=== PATIENT | female | born 2005 | race Caucasian/White ===

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

== ENCOUNTER 2023-02-28 18:25 | Inpatient (IN) | payer MEDICAID ==
[~2023-02-28] VITALS: Ht 162.6 cm; Wt 56.0 kg
[2023-02-28] MEDS ORDERED: normal saline 1000ML IV soln IVB ONE ×3 (20:30→22:55)
[2023-02-28] MEDS ORDERED: ondansetron/PF 4mg/2ml inj IV ONE (20:30)
[2023-02-28 21:31] LABS: BASOPHILS # (AUTO) 0.2 X10'3 (0-0.2); BASOPHILS % (AUTO) 1.3 % (0-1); EOSINOPHILS % (AUTO) 0.3 % (0-6); HEMATOCRIT 42.4 % (35.0-45.0); HEMOGLOBIN 14.1 g/dl (12.0-16.0); LYMPHOCYTES # (AUTO) 0.7 X10'3 (1.1-4.8); LYMPHOCYTES % (AUTO) 5.6 % (21-51); MEAN CORPUSCULAR HEMOGLOBIN 28.3 PG (27.0-31.0); MEAN CORPUSCULAR HGB CONC 33.1 g/dL (33.0-36.5); MEAN CORPUSCULAR VOLUME 85.4 FL (78-98); MEAN PLATELET VOLUME 7.7 FL (7.4-10.4); MONOCYTES # (AUTO) 0.7 X10'3 (0-0.9); MONOCYTES % (AUTO) 5.3 % (2-12); NEUTROPHILS # (AUTO) 11.3 X10'3 (1.8-7.7); NEUTROPHILS % (AUTO) 87.5 % (42-75); PLATELET COUNT 217 X10'3 (140-440); RED BLOOD COUNT 4.97 X10'6 (4.20-5.60); RED CELL DISTRIBUTION WIDTH 14.8 % (11.5-14.5); WHITE BLOOD COUNT 12.9 X10'3 (4.5-11.0)
[2023-02-28 21:54] LABS: ALANINE AMINOTRANSFERASE 17 U/L (12-78); ALBUMIN 4.4 G/DL (3.4-5.0); ALBUMIN/GLOBULIN RATIO 1.2 (1.1-1.5); ALKALINE PHOSPHATASE 68 IU/L (20-180); ANION GAP 10 (8-16); ASPARTATE AMINO TRANSFERASE 13 U/L (10-37); BILIRUBIN,TOTAL 0.5 MG/DL (0.1-1.0); BLOOD UREA NITROGEN 16 MG/DL (7-18); BUN/CREATININE RATIO 16.3 (10.0-20.0); CALCIUM 9.2 MG/DL (8.5-10.1); CHLORIDE 102 MMOL/L (99-107); CREATININE 0.98 MG/DL (0.40-0.90); GLUCOSE 99 MG/DL (70-104); POTASSIUM 3.7 MMOL/L (3.5-5.1); SODIUM 138 MMOL/L (135-145); TOTAL CARBON DIOXIDE 26.2 MMOL/L (24-32); eGFR 73 ML/MIN
[2023-02-28 22:02] LABS: URINE HCG NEGATIVE (NEG)
[2023-02-28 22:16] LABS: CLARITY,URINE SLIGHTLY CLOUDY (Clear); COLOR,URINE YELLOW (Yellow); GLUCOSE, URINE NEGATIVE (Neg); KETONES,URINE TRACE mg/dl (Neg); LEUKOCYTE ESTERASE ,URINE SMALL (Neg); NITRITES, URINE NEGATIVE (Neg); OCCULT BLOOD,URINE NEGATIVE (Neg); PH,URINE 6.5 (4.8-8.0); PROTEIN,URINE NEGATIVE (Neg); UROBILINOGEN,URINE 0.2 E.U/dL (0.2-1.0)
[2023-02-28 22:18] LABS: URINE AMPHETAMINE SCREEN NEGATIVE (Neg); URINE BARBITUATE SCREEN NEGATIVE (Neg); URINE BENZODIAZEPINES SCREEN NEGATIVE (Neg); URINE CANNABINOID SCREEN NEGATIVE (Neg); URINE COCAINE SCREEN NEGATIVE (Neg); URINE METHADONE SCREEN NEGATIVE (Neg); URINE OPIATE SCREEN NEGATIVE (Neg); URINE PHENCYCLIDINE SCREEN NEGATIVE (Neg)
[2023-02-28 22:24] LABS: PLATELET ESTIMATE NORMAL; TOTAL CELLS COUNTED 100
[2023-02-28 22:28] LABS: UA COLLECTION TYPE CLN CATCH MIDSTREAM
[2023-02-28 22:31] LABS: BACTERIA,URINE NONE SEEN /HPF (Neg); MUCUS STRANDS NONE SEEN /LPF (Neg); RBC,URINE 0-2 /HPF (0-2); SQUAMOUS EPITHELIAL CELL,UR MANY /LPF (FEW)
[2023-02-28 22:31] LABS: LIPASE 86 U/L (73-393)
[2023-02-28] MEDS ORDERED: ciprofloxacin lact 400MG/200ML 200 ML IV ONE (22:55)
[2023-03-01] MEDS ORDERED: potassium Cl 40MEQ/1/2NS 520ml 520 ML IV PRN (00:30)
[2023-03-01] MEDS ORDERED: acetaminophen 325mg tablet PO PRN (00:30)
[2023-03-01] MEDS ORDERED: potassium Cl 20 mEq SR tablet PO PRN (00:30)
[2023-03-01] MEDS ORDERED: magnesium 2GM in 50ml NS 50 ML IV PRN (00:30)
[2023-03-01] MEDS ORDERED: ondansetron/PF 4mg/2ml inj IV PRN (00:30)
[2023-03-01] MEDS ORDERED: magnesium 4gm in 100ml NS 100 ML IV PRN (00:30)
[2023-03-01] MEDS: normal saline 1000ml 1,000 ML IV SCH ×2 (01:26→11:02)
[2023-03-01 03:21] LABS: MAGNESIUM 1.3 MG/DL (1.5-2.4); POTASSIUM 3.1 MMOL/L (3.5-5.1)
[2023-03-01 07:58] LABS: C DIFF SPECIMEN=DIARRHEA? ACCEPTABLE; C DIFFICILE TOXINS A&B POSITIVE (Neg)
[2023-03-01] MEDS: K and/or MAG REPLACEMENT MC SCH ×2 (08:00→20:22)
[2023-03-01] MEDS ORDERED: CefTRIAXone/D5W-Rocephin 1gm 50 ML IV SCH (08:00)
[2023-03-01] MEDS ORDERED: metroNIDAZOLE-Flagyl 500mg/NS 100 ML IV STA (08:01)
[2023-03-01] MEDS: magnesium Cl slow-release 64mg tablet PO PRN ×2 (08:50→20:17)
[2023-03-01] MEDS: potassium Cl 20 mEq SR tablet PO PRN ×3 (08:50→17:09)
[2023-03-01] MEDS: vancomycin 125mg/5ml ORAL solution 5ml UD oral syringe PO SCH ×3 (12:49→20:16)
[2023-03-01] MEDS: dextrose 5%-normal saline 1,000 ML IV SCH ×2 (12:55→20:01)
[2023-03-01 13:00] LABS: HEMOGLOBIN A1C 5.2 % (4.5-6.2)
--- NOTE | 2023-03-01 13:17 | NUR ---
called [facility] to give report at 1316, left on hold and then hung up on.
[2023-03-01 16:50] VITALS: BP 104/74
[2023-03-01 18:00] VITALS: BP 126/81
--- NOTE | 2023-03-01 18:30 | NUR ---
Patient in room PCU 3021. I have received report from NEGIN HORTON and had the opportunity to ask questions and assume patient care.
[2023-03-01 22:00] VITALS: BP 114/77
[2023-03-02 02:00] VITALS: BP 123/76
[2023-03-02] MEDS: vancomycin 125mg/5ml ORAL solution 5ml UD oral syringe PO SCH ×3 (03:12→15:11)
[2023-03-02] MEDS: dextrose 5%-normal saline 1,000 ML IV SCH ×2 (03:13→12:20)
[2023-03-02 06:00] VITALS: BP 115/68
--- NOTE | 2023-03-02 06:24 | NUR ---
Problems reprioritized. Patient report given, questions answered & plan of care reviewed with RASHAWN FLORES.
[2023-03-02 07:08] LABS: BASOPHILS % (AUTO) 0.2 % (0-1); EOSINOPHILS # (AUTO) 0.1 X10'3 (0-0.9); EOSINOPHILS % (AUTO) 1.6 % (0-6); HEMATOCRIT 35.7 % (35.0-45.0); HEMOGLOBIN 12.1 g/dl (12.0-16.0); LYMPHOCYTES # (AUTO) 1.9 X10'3 (1.1-4.8); LYMPHOCYTES % (AUTO) 20.8 % (21-51); MEAN CORPUSCULAR HEMOGLOBIN 29.2 PG (27.0-31.0); MEAN CORPUSCULAR VOLUME 85.9 FL (78-98); MEAN PLATELET VOLUME 7.9 FL (7.4-10.4); MONOCYTES # (AUTO) 0.5 X10'3 (0-0.9); MONOCYTES % (AUTO) 5.9 % (2-12); NEUTROPHILS # (AUTO) 6.7 X10'3 (1.8-7.7); NEUTROPHILS % (AUTO) 71.5 % (42-75); PLATELET COUNT 167 X10'3 (140-440); RED BLOOD COUNT 4.15 X10'6 (4.20-5.60); RED CELL DISTRIBUTION WIDTH 14.7 % (11.5-14.5); WHITE BLOOD COUNT 9.3 X10'3 (4.5-11.0)
--- NOTE | 2023-03-02 07:08 | NUR ---
Patient in room PCU 3021. I have received report from MARK HOOVER, and had the opportunity to ask questions and assume patient care.
[2023-03-02 07:15] LABS: ANION GAP 9 (8-16); BLOOD UREA NITROGEN 6 MG/DL (7-18); BUN/CREATININE RATIO 8.6 (10.0-20.0); CHLORIDE 108 MMOL/L (99-107); GLUCOSE 126 MG/DL (70-104); MAGNESIUM 1.7 MG/DL (1.5-2.4); PHOSPHORUS 2.5 MG/DL (2.3-4.5); POTASSIUM 3.7 MMOL/L (3.5-5.1); SODIUM 142 MMOL/L (135-145); TOTAL CARBON DIOXIDE 24.8 MMOL/L (24-32); eGFR > 90 ML/MIN
[2023-03-02] MEDS: K and/or MAG REPLACEMENT MC SCH (08:00)
[2023-03-02 11:00] VITALS: BP 111/68
--- NOTE | 2023-03-02 11:11 | NUR ---
PAGE SENT Message: 3021, ALFONSO PAT, PT HAS VAGINAL ITCHING AND WHITE DISCHARGE. MAY I HAVE AN ORDER FOR MONISTAT? THANK Adalberto MONTERROSO. RASHAWN [id number] Custom Responses: promotional table spacer Transaction number: [id number]
[2023-03-02] MEDS ORDERED: fluconazole 150mg tablet PO ONE (13:45)
[2023-03-02] MEDS ORDERED: VANC125C11 PO (15:01)
[2023-03-02] MEDS ORDERED: LACT1CAP74 PO (15:01)
--- NOTE | 2023-03-02 16:03 | NUR ---
PT STABLE FOR DISCHARGE PER MD. DISCHARGE AND FOLLOW UP INSTRUCTIONS REVIEWED WITH PT. TELE BOX REMOVED. PIV REMOVED WITH TIP INTACT. PT'S BELONGING GATHERED FOR PT. PT WAS TRANSFERRED TO PRIVATE VEHICLE BY HOSPITAL STAFF. PT WAS DISCHARGED TO HOME.
== END 2023-03-02 15:59 | disposition home or self-care (01) | DRG 720 ==
LOC: ER 18:25 → ED HOLD 03-01 00:30 → PCU 3S 03-01 13:47
PROVIDERS: ADMIT Internal Medicine; ATTEND Family Medicine
DX: A41.9 Sepsis, unspecified organism (principal); E86.0 Dehydration; E87.6 Hypokalemia; N39.0 Urinary tract infection, site not specified; K52.9 Noninfective gastroenteritis and colitis, unspecified
CPT/HCPCS: 36415; 80048; 80053; 80305; 81001; 81025; 83036; 83605; 83690; 83735; 84100; 84132; 84145; 84443; 85007; 85025; 87040; 87045; 87046; 87088; 87324; 87449; 99285; G0378; J0744; J2405; J3490; J7030; J7042; J7070

== ENCOUNTER 2023-11-15 07:45 | Emergency (ER) | payer MEDICAID ==
[~2023-11-15] VITALS: Ht 162.6 cm; Wt 55.8 kg
[~2023-11-15 07:45] MED LIST changes: +LACT1CAP74 PO; -NO HOME MEDS; +VANC125C11 PO
[2023-11-15 07:46] VITALS: TEMP 98.2
[2023-11-15 08:14] LABS: URINE HCG NEGATIVE (NEG)
[2023-11-15 08:22] LABS: BILIRUBIN,URINE NEGATIVE (Neg); CLARITY,URINE CLOUDY (Clear); COLOR,URINE YELLOW (Yellow); GLUCOSE, URINE NEGATIVE (Neg); KETONES,URINE NEGATIVE (Neg); LEUKOCYTE ESTERASE ,URINE NEGATIVE (Neg); NITRITES, URINE NEGATIVE (Neg); OCCULT BLOOD,URINE NEGATIVE (Neg); PROTEIN,URINE NEGATIVE (Neg); UA COLLECTION TYPE CLN CATCH MIDSTREAM; UROBILINOGEN,URINE 0.2 E.U/dL (0.2-1.0)
[2023-11-15 08:27] LABS: BASOPHILS % (AUTO) 0.6 % (0-1); EOSINOPHILS % (AUTO) 0.9 % (0-6); HEMATOCRIT 41.8 % (35.0-45.0); HEMOGLOBIN 13.9 g/dl (12.0-16.0); LYMPHOCYTES # (AUTO) 1.3 X10'3 (1.1-4.8); MEAN CORPUSCULAR HEMOGLOBIN 29.4 PG (27.0-31.0); MEAN CORPUSCULAR HGB CONC 33.4 g/dL (33.0-36.5); MEAN CORPUSCULAR VOLUME 88.1 FL (78-98); MEAN PLATELET VOLUME 7.7 FL (7.4-10.4); MONOCYTES # (AUTO) 0.2 X10'3 (0-0.9); MONOCYTES % (AUTO) 6.8 % (2-12); NEUTROPHILS # (AUTO) 1.8 X10'3 (1.8-7.7); NEUTROPHILS % (AUTO) 53.7 % (42-75); PLATELET COUNT 198 X10'3 (140-440); RED BLOOD COUNT 4.74 X10'6 (4.20-5.60); RED CELL DISTRIBUTION WIDTH 13.9 % (11.5-14.5); WHITE BLOOD COUNT 3.4 X10'3 (4.5-11.0)
[2023-11-15 08:28] LABS: BACTERIA,URINE 2+ /HPF (Neg); MUCUS STRANDS MANY /LPF (Neg); SQUAMOUS EPITHELIAL CELL,UR MANY /LPF (FEW)
[2023-11-15 08:29] LABS: RBC,URINE 0-2 /HPF (0-2); WBC,URINE 0-4 /HPF (0-4)
[2023-11-15] MEDS: mag hydrox/Alum hydrox/simeth 30ml oral suspension PO ONE (08:59)
[2023-11-15] MEDS: LIDOcaine Viscous 15ml cup MM PRN (08:59)
[2023-11-15 09:29] LABS: ALANINE AMINOTRANSFERASE 21 U/L (12-78); ALBUMIN/GLOBULIN RATIO 1.1 (1.1-1.5); ALKALINE PHOSPHATASE 63 IU/L (20-180); ANION GAP 6 (8-16); ASPARTATE AMINO TRANSFERASE 17 U/L (10-37); BILIRUBIN,TOTAL 0.4 MG/DL (0.1-1.0); BLOOD UREA NITROGEN 12 MG/DL (7-18); BUN/CREATININE RATIO 13.8 (10.0-20.0); CALCIUM 8.7 MG/DL (8.5-10.1); CHLORIDE 109 MMOL/L (99-107); CREATININE 0.87 MG/DL (0.40-0.90); GLUCOSE 95 MG/DL (70-104); LIPASE 32 U/L (16-77); POTASSIUM 4.2 MMOL/L (3.5-5.1); SODIUM 144 MMOL/L (135-145); TOTAL CARBON DIOXIDE 28.8 MMOL/L (24-32); TOTAL PROTEIN 7.7 G/DL (6.4-8.2); eCRCL 89 ML/MIN; eGFR 83 ML/MIN
[2023-11-15] MEDS ORDERED: ONDA4TAB12 PO (09:41)
[2023-11-15 09:53] VITALS: BP 132/94; PULSE 80; RESP 16; O2SAT 99
== END 2023-11-15 10:02 | disposition home or self-care (01) ==
LOC: ER 07:45
DX: K52.9 Noninfective gastroenteritis and colitis, unspecified (principal); Z79.899 Other long term (current) drug therapy
CPT/HCPCS: 36415; 80053; 81001; 81025; 83690; 85025; 99283